=== PATIENT | female | born 1995 | race Caucasian/White ===

== ENCOUNTER 2022-06-27 05:36 | Inpatient (IN) | payer MEDICAID, SELFPAY ==
[2022-06-27] VITALS (68 sets, daily range): BP systolic 122–203; BP diastolic 62–108; PULSE 59–90; RESP 16–20; TEMP 35.9–37.2; O2SAT 92–100; BMI 33.7
[2022-06-27] MEDS: Lactated Ringers 1,000 ML 50 ML IV (05:55)
[2022-06-27 06:10] LABS: Absolute Lymphocyte Count 3.99 X10^3/uL (0.83-4.51); Absolute Neutrophil Count 4.5 X10^3/uL (2.0-7.7); Basophil# 0.03 X10^3/uL; Basophil% 0.3 % (0-1); Eosinophil# 0.09 X10^3/uL; Hematocrit 37.3 % (37-47); Hemoglobin 12.9 g/dL (12.0-15.0); Lymphocyte # 3.99 X10^3/ul (0.83-4.51); Lymphocyte % 42.5 % (19-41); Mean Corp Hgb Conc 34.6 g/dL (32-36); Mean Corpuscular Hgb 32.3 pg (27.0-32.0); Mean Corpuscular Volume 93.5 fL (81-99); Mean Platelet Vol. 12.4 fl (6.2-12.0); Monocyte# 0.68 X10^3/uL; Monocyte% 7.2 % (0-10); NRBC Flagged by Analyzer 0 % (0-5); Neutrophil # 4.49 X10^3/uL (2.7-7.7); Neutrophil % 47.9 % (47-70); Platelet Count 169 K/mm3 (150-450); RBC Distribution Width CV 13.3 % (11.6-14.6); RBC Distribution Width SD 45.5 fl (35.1-43.9); Red Blood Count 3.99 M/mm3 (4.2-5.4); White Blood Count 9.4 K/mm3 (4.4-11.0)
[2022-06-27] MEDS: Oxytocin 10 UNITS/ML Vial IM (06:42)
--- NOTE | 2022-06-27 06:54 | HP.PCM.OB_ITS ---
HPI - General General Date of Admission: 06/27/22 Date of Service: 06/27/22 HPI Narrative ODALYS MISHRA, is a 27 F who presents with contractions. Maternal Data Information Final GIL: 07/04/22 Gestational age: 39 weeks [facility] Medical History (Updated 06/27/22 @ 06:[address] Rosalinda Styles MD) Endometriosis Allergy/AdvReac Type Severity Reaction Status Date / Time Sulfa (Sulfonamide Allergy Other Verified 06/27/22 06:12 Antibiotics) Surgical History (Updated 06/27/22 @ 06:[address] Rosalinda Styles MD) H/O breast surgery H/O ovarian cystectomy Social History Smoking Status: Never smoker History Elective abortions Hx Para 1 Spontaneous abortions Hx # Term Pregnancies Ectopic pregnancies Hx # Pregnancies Multiple births # of living children Vital Signs Vital Signs Vital Signs: 06/27/22 05:52 06/27/22 05:52 06/27/22 05:52 Temperature Temperature Source Temporal Pulse Rate 80 Blood Pressure 140/91 H BP Systolic 140 BP Diastolic 91 Pulse Ox 06/27/22 05:52 06/27/22 05:52 06/27/22 06:50 Temperature 96.7 F L Temperature Source Pulse Rate Blood Pressure 175/73 H BP Systolic 175 BP Diastolic 73 Pulse Ox 100 06/27/22 06:50 06/27/22 06:52 06/27/22 06:52 Temperature Temperature Source Pulse Rate 84 75 Blood Pressure 174/83 H BP Systolic 174 BP Diastolic 83 Pulse Ox Weight Weight: 190 lb 3.2 oz Body Mass Index (BMI) 33.7 Physical Exam Const alert and oriented x3 external exam normal Narrative: cvx - C/C/+1, AROM clear fluid Labs Labs Labs: Blood Type A POSITIVE Antibody Screen NEGATIVE Hct 37.3 % (37-47) Hgb 12.9 g/dL (12.0-15.0) See [facility] H&P Assessment & Plan (1) 39 weeks gestation of : COMMENT: @ 39 weeks in labor PLAN: Patient admitted to L&D. AROM performed & patient had a - see delivery note. COVID negative GBS negative BP's elevated around & just after delivery - arm shaking & patient painful. Will monitor & evaluate for preeclampsia if needed.
--- NOTE | 2022-06-27 07:04 | EX.PCM.OBRPT ---
Maternal Data Information Final GIL: 07/04/22 Gestational age: 39 weeks Vaginal Delivery Maternal Presentation Maternal Presentation: Active Labor Operative Information Date of Procedure: 06/27/22 Pre-Operative Diagnosis: Labor Post-Operative Diagnosis: Labor Surgery / Procedure Performed: Spontaneous Vaginal Delivery Type of Anesthesia: None Estimated Blood Loss: 200ml Findings Description of Procedure: Patient prepped & draped when C/C/+2. She pushed well to deliver the head. head gently guided to allow delivery of anterior and posterior shoulders. No excess traction placed on head. Body delivered and 3VC clamped & cut in delayed fashion. Placenta delivered with gentle traction and good uterine tone obtained. Presentation: GRETCHEN Amniotic Membrane Rupture Type: Artificial Amniotic Fluid Description: Clear Placental Delivery Description: Expressed Placenta Disposition: [facility] Specimen(s) Removed: Placenta Cord Vessel Description: 3 Vessels Cord Entanglement: Around neck x 1, loose Nuchal Cord Compression: Without compression A Gender: Male ([place]) (1 minute): 7 (5 minute): 9 Delayed Cord Clamping: Yes Post Vaginal Delivery Medications Given After Delivery: - (IM pitocin) Episiotomy Description: None Laceration: None Complication Complications: None
[2022-06-27] MEDS: 0.9% Saline Lock 10 ML Syringe IV ×4 (07:39→20:07)
[2022-06-27 08:02] LABS: AST(SGOT) 39 U/L (15-37); Alanine Aminotransfer ALT/SGPT 26 U/L (13-56); Creatinine, Serum 0.81 mg/dL (0.55-1.02); EST Glomerular Filtration Rate 90 mL/min (>60); Est Glom Filt Rate - Afr Amer 109 mL/min (>60)
[2022-06-27] MEDS: Acetaminophen 500 MG Tablet 1000 MG PO ×2 (08:35→17:07)
[2022-06-27] MEDS: Labetalol (Prefilled) 20 MG/4 ML IV (09:25)
[2022-06-27] MEDS: Magnesium Sulfate 4gm/100mL 4 GM/100 ML IV.SOLN. IV (09:39)
[2022-06-27] MEDS: Ondansetron 4 MG/2 ML Vial IV ×2 (09:56→20:06)
[2022-06-27] MEDS: Magnesium Sulfate 4gm/100mL 2 GM/50 ML IV.SOLN. IV (10:02)
[2022-06-27] MEDS: Magnesium Sulfate 20 GM/500 ML BAG IV ×2 (10:18→20:11)
[2022-06-27] MEDS: Ibuprofen 600 MG Tablet PO ×2 (11:12→18:08)
[2022-06-27] MEDS: Labetalol 200 MG Tablet PO ×2 (11:12→22:18)
[2022-06-28] VITALS (31 sets, daily range): BP systolic 120–161; BP diastolic 67–93; PULSE 65–91; RESP 16–18; TEMP 36.3–37.1; O2SAT 96–99
[2022-06-28] MEDS: Ibuprofen 600 MG Tablet PO ×4 (00:14→20:57)
[2022-06-28] MEDS: Acetaminophen 500 MG Tablet 1000 MG PO ×3 (00:14→14:11)
--- NOTE | 2022-06-28 02:00 | NURSING ---
Pt reported SEGURA of 6-04/01 around 0015. Pt given Tylenol and Motrin, but pt reported that did not help. At 0100 pt began drinking CocaCola (within PO fluid restriction) to see if caffeine would help with SEGURA. Pt reports that SEGURA is still persistent, and describes the SEGURA as pressure behind her eyes. Pt's assessment WNL, and pt denies any additional sx at this time. Pt reports that she has not been able to sleep much at all since delivery. Dr. Espinoza updated on pt's condition. Orders for PRN Oxycodone given. Will update pt about new orders and admin meds. RONIT Calabrese
[2022-06-28] MEDS: Ondansetron 4 MG/2 ML Vial IV (02:58)
[2022-06-28] MEDS: 0.9% Saline Lock 10 ML Syringe IV ×3 (02:58→20:57)
[2022-06-28] MEDS: oxyCODONE 5 MG Tablet PO (03:05)
[2022-06-28] MEDS: Magnesium Sulfate 20 GM/500 ML BAG IV (05:55)
--- NOTE | 2022-06-28 08:15 | PCM.PN.OB ---
Subjective Subjective pt doing well. Has a SEGURA since overnight that she describes as pressure behind her eyes. No vision changes other than she feels it is difficult to assess given the eye pressure. No upper abd pain, N/V, CP, SOB. Lochia normal. Bottle feeding. Ambulating and voiding without difficulty. Objective Data Objective Data Vital Signs: Vital Signs Temp Pulse Resp BP Pulse Ox O2 Del Method 98.4 F 91 17 151/89 H 97 Room Air 06/28/22 07:52 06/28/22 07:52 06/28/22 07:52 06/28/22 07:52 06/28/22 07:52 06/28/22 07:52 Oxygen Delivery Method Room Air Weight: 190 lb 3.2 oz Body Mass Index (BMI) 33.7 Intake & Output: Intake and Output for Last 24 Hours 06/26/22 06/27/22 06/28/22 23:59 23:59 23:59 Intake Total 2581.67 / 2581.67 1686.67 / 1686.67 Output Total 3650 / 4250 2100 / 2100 Balance -1068.33 / -1668.33 -413.33 / -413.33 Lab / Micro Data Result Diagrams: 06/27/22 05:55 06/27/22 07:39 Micro: Microbiology 06/27/22 06:05 Nasal Secretion SARS-CoV-2 Antigen (Rapid) - Final Physical Exam Const alert and no apparent distress General Appearance: comfortable HEENT normocephalic Resp normal respiratory effort GI soft to palpation, non-tender and non-distended GI Narrative: FF@U-1 Extremity Extremity Narrative: 1+ pitting edema bilaterally Assessment & Plan (1) Vaginal delivery: PLAN: Routine care Bottle feeding (2) Pre-eclampsia, : PLAN: Mag gtt x 24 hours . Suspect SEGURA due to lack of sleep and mag. Will reassess once mag gtt is off. If she still has a SEGURA will treat with Fioricet. Increase Labetalol to 300 mg BID. Continue close monitoring. Discussed earliest discharge would be tomorrow once she is 24 hours off mag.
[2022-06-28] MEDS: Labetalol 200 MG Tablet 300 MG PO ×2 (09:51→22:17)
--- NOTE | 2022-06-28 15:47 | NURSING ---
this RN agrees with student nurse charting
[2022-06-29] VITALS (7 sets, daily range): BP systolic 145–171; BP diastolic 76–90; PULSE 65–80; RESP 16–18; TEMP 36.4–36.9; O2SAT 97–99
[2022-06-29] MEDS: Acetaminophen 500 MG Tablet 1000 MG PO ×4 (02:58→22:11)
[2022-06-29] MEDS: Ibuprofen 600 MG Tablet PO ×4 (02:59→22:10)
--- NOTE | 2022-06-29 07:55 | PCM.PROGNOTE ---
Subjective Subjective patient seen at bedside, doing well. Patient reports good pain control. lochia mild. reports no changes in vision. reports does still have SEGURA when motrin and tylenol wear off but improving. Objective Data Objective Data Vital Signs: Vital Signs Temp Pulse Resp BP Pulse Ox O2 Del Method 98.5 F 80 18 147/90 H 97 Room Air 06/29/22 02:55 06/29/22 02:55 06/29/22 02:55 06/29/22 02:55 06/29/22 02:55 06/29/22 02:55 Oxygen Delivery Method Room Air Weight: 86.273 kg Body Mass Index (BMI) 33.7 Intake & Output: Intake and Output for Last 24 Hours 06/27/22 06/28/22 06/29/22 23:59 23:59 23:59 Intake Total 2581.67 / 2581.67 2178.34 / 2178.34 Output Total 3650 / 4250 2900 / 2900 Balance -1068.33 / -1668.33 -721.66 / -721.66 Lab / Micro Data Result Diagrams: 06/27/22 05:55 06/27/22 07:39 Micro: Microbiology 06/27/22 06:05 Nasal Secretion SARS-CoV-2 Antigen (Rapid) - Final Physical Exam Narrative funud firm. No RUQ pain on deep palpation. Const alert and oriented x3 General Appearance: cooperative HEENT normocephalic Neck General: normal visual inspection GI soft to palpation and non-distended GI Narrative: Fundus firm Extremity normal to inspection and no calf tenderness Skin no rashes or lesions noted Neuro oriented x3 and CN's II-XII intact bilaterally Psych mental status grossly normal Assessment & Plan Assessment/Plan (1) Pre-eclampsia, : (2) Vaginal delivery: PLAN: Plan PPD#2 , Doing well Routine care pain mgmt ambulation VS- BP still elevated. recommendation for Labetalol TID . reviewed with patient will be discharged tomorrow so long as BPs respond well to labetalol.
[2022-06-29] MEDS: Labetalol 200 MG Tablet 300 MG PO ×3 (07:58→22:10)
--- NOTE | 2022-06-29 18:55 | NURSING ---
Phone call placed to Dr. Del Rio. Updated on elevated BP's. Plan is to start 30 mg Procardia XL daily with first dose now.
[2022-06-29] MEDS: NIFEdipine 30 MG Tablet PO (19:02)
[2022-06-29] MEDS: 0.9% Saline Lock 10 ML Syringe IV (22:12)
--- NOTE | 2022-06-29 23:13 | NURSING ---
Pt complained of itchy and slightly red rash on face, neck, and upper chest. Pt believes it is caused from soap provided by hospital due to the rash occurring after she showered. Will continue to monitor.
[2022-06-30 01:30] VITALS: BP 147/69; PULSE 73; RESP 16; TEMP 36.4; O2SAT 97
[2022-06-30] MEDS: Ibuprofen 600 MG Tablet PO ×2 (04:10→10:37)
[2022-06-30] MEDS: Acetaminophen 500 MG Tablet 1000 MG PO ×2 (04:11→10:37)
[2022-06-30] MEDS: Labetalol 200 MG Tablet 300 MG PO (06:10)
[2022-06-30 08:45] VITALS: BP 141/77; PULSE 84; RESP 18; TEMP 36.3; O2SAT 98
--- NOTE | 2022-06-30 10:05 | PCM.PN.OB ---
Subjective Subjective Doing well per patient and nursing staff. Ambulating and taking PO without difficulty. Voiding and passing flatus. Pain controlled. , services for assistance. Denies headache, visual changes, chest pain, shortness of breath, leg pain or increased bleeding. Lochia normal. Emotional and wanting to go home to see her son. Objective Data Objective Data Vital Signs: Vital Signs Temp Pulse Resp BP Pulse Ox O2 Del Method 97.4 F L 84 18 141/77 H 98 Room Air 06/30/22 08:45 06/30/22 08:45 06/30/22 08:45 06/30/22 08:45 06/30/22 08:45 06/30/22 08:45 Oxygen Delivery Method Room Air Weight: 190 lb 3.2 oz Body Mass Index (BMI) 33.7 Intake & Output: Intake and Output for Last 24 Hours 06/28/22 06/29/22 06/30/22 23:59 23:59 23:59 Intake Total 2178.34 / 2178.34 Output Total 2900 / 2900 0 / 0 Balance -721.66 / -721.66 0 / 0 Lab / Micro Data Result Diagrams: 06/27/22 05:55 06/27/22 07:39 Micro: Microbiology 06/27/22 06:05 Nasal Secretion SARS-CoV-2 Antigen (Rapid) - Final ROS Constitutional Constitutional: Reports systems reviewed and no addt'l complaints, except as documented; Denies headache(s) Eyes Eyes: Denies acute decrease in peripheral vision, blurry vision or change in vision ENT HEENT: Reports systems reviewed and no addt'l complaints, except as documented Cardiovascular Cardiovascular: Denies chest pain or dizziness Respiratory/Chest Respiratory/Chest: Denies cough, dyspnea, dyspnea on exertion, shortness of breath at rest or shortness of breath with exertion Gastrointestinal Gastrointestinal: Denies abdominal pain, diarrhea, nausea or vomiting Genitourinary Genitourinary: Denies abdominal discomfort Musculoskeletal Musculoskeletal: Denies limited range of motion Integumentary Integumentary: Reports systems reviewed and no addt'l complaints, except as documented Neurologic Neurologic: Reports systems reviewed and no addt'l complaints, except as documented Psychiatric Psychiatric: Reports systems reviewed and no addt'l complaints, except as documented Endocrine Endocrinology: Reports systems reviewed and no addt'l complaints, except as documented Hematologic/Lymphatic Hematologic/Lymphatic: Reports systems reviewed and no addt'l complaints, except as documented Allergic/Immunologic Allergic/Immunologic: Reports systems reviewed and no addt'l complaints, except as documented Physical Exam Const alert and oriented x3 General Appearance: cooperative Orientation / Consciousness: awake, oriented to person, oriented to place and oriented to time Exam Limitations: no limitations HEENT normocephalic Head and Scalp: normal to inspection, normocephalic and atraumatic Face and Sinus: normal facial exam Eyes General Eye: normal appearance of both eyes Neck full ROM Chest Chest: symmetrical chest wall rise Resp normal respiratory effort and normal air movement Auscultation: clear to auscultation bilaterally Cardio regular rate, regular rhythm, S1 normal heart sound, S2 normal heart sound, no murmurs, no rub, no gallops and no clicks GI normal to inspection, nondistended, normoactive bowel sounds and non-tender Bladder / Kidney Exam: no CVA tenderness Back/Spine normal ROM Extremity normal to inspection and full ROM Skin no rashes or lesions noted Neuro oriented x3, CN's II-XII intact bilaterally and moves all extremities Sensorium / Orientation: awake, alert and oriented to person Motor Exam: clonus absent Deep Tendon Reflexes: Rt Patellar (L4): 2+ and Lt Patellar (L4): 2+ Assessment & Plan (1) Pre-eclampsia, : PLAN: 1) Routine PP care 2) BP mildly elevated 140/70's, asymptomatic. Discharge with Labetalol 300mg PO TID and Procardia XL 30mg PO once daily. 3) Check BP before taking BP medication. Will call with BP log tomorrow and if elevated 150/90. No Caffiene 4) Motrin for pain 5) Follow up for BP check 3 days 6) Follow up in 2 weeks and 6 weeks for PP visit 7) D/C home and notified of plan of care
--- NOTE | 2022-06-30 10:13 | DS.PCM_ITS ---
Providers Date of Admission: 06/27/22 Primary Care Physician: JAMES Silva Reason For Visit: LABOR AND DELIVERY/VAGINAL DELIVERY Diagnosis Discharge Diagnosis (1) Pre-eclampsia, : Status: Acute Code(s): O14.95 - Unspecified pre-eclampsia, complicating the puerperium Plan: 1) Routine PP care 2) BP mildly elevated 140/70's, asymptomatic. Discharge with Labetalol 300mg PO TID and Procardia XL 30mg PO once daily. 3) Check BP before taking BP medication. Will call with BP log tomorrow and if elevated 150/90. No Caffiene 4) Motrin for pain 5) Follow up for BP check 3 days 6) Follow up in 2 weeks and 6 weeks for PP visit 7) D/C home and notified of plan of care Medications at Discharge Home Medications [id number] 1 mg tablet 1 tab PO DAILY 06/27/22 acetaminophen 500 mg tablet 1,000 mg PO Q6H PRN PRN Pain 1-10 Or Fever #0 tabs 06/30/22 benzocaine 20 %-menthol 0.5 % topical aerosol (Dermoplast (with menthol)) 1 spray topical TID PRN PRN perineal discomfort #0 grams 06/30/22 ibuprofen 600 mg tablet 600 mg PO Q6H PRN PRN Pain Score 1-3 #30 tabs 06/30/22 labetalol 200 mg tablet 300 mg PO TID #60 tabs 06/30/22 nifedipine 30 mg tablet,extended release 24 hr 30 mg PO DAILY #30 tabs 06/30/22 sennosides 8.6 mg-docusate sodium 50 mg tablet (Stool Softener-Stimulant Laxative) 1 - 2 tab PO DAILY PRN PRN Constipation #0 tabs 06/30/22 Hospital Course Summary of Care Provided Hospital Course: Presented on 06/27/22 for precipitous labor and delivery. complicated by preeclampsia with severe features. Antihypertensive therapy and magnesium for management. Discharged home on PP day #3. Weight / BMI Weight Weight: 190 lb 3.2 oz Body Mass Index (BMI) 33.7 ABG / Lab / Microbiology Data Result Diagrams: 06/27/22 05:55 06/27/22 07:39 Microbiology: Microbiology 06/27/22 06:05 Nasal Secretion SARS-CoV-2 Antigen (Rapid) - Final Meaningful Use Info Meaningful Use Diagnoses (Choose all that apply): None applicable Discharge Plan Admission Admit Date/Time: 06/27/22 05:36 Primary Reason for Your Visit: Vaginal , Preeclampsia Attending Provider: Rosalinda Styles Primary Care Provider: Jane Peterson NP Instructions Additional Instructions / Restrictions: May take Claritin for rash to body. If no improvement recommend evaluation. Can apply hydrocortisone as needed. Do not have any caffeine Take Blood pressure before taking medication. Hold if BP is 100/60, then repeat in one hour and call for instructions. Call if BP 150/90 or greater. Discharge Orders/Prescriptions Prescriptions: New Dermoplast (with menthol) 20-0.5 % Aerosol 1 spray topical TID PRN PRN (Reason: perineal discomfort) Qty: 0 0RF Protocol: *Topical Application Instructions APPLICATION INSTRUCTIONS: 1 spray 3 times a day as needed for perineal discomfort acetaminophen 500 mg Tablet 1,000 mg PO Q6H PRN PRN (Reason: Pain 1-10 Or Fever) Qty: 0 0RF ibuprofen 600 mg Tablet 600 mg PO Q6H PRN PRN (Reason: Pain Score 1-3) Qty: 30 0RF labetalol 200 mg Tablet 300 mg PO TID Qty: 60 0RF nifedipine 30 mg Tablet Extended Release 24hr 30 mg PO DAILY Qty: 30 0RF sennosides-docusate sodium [Stool Softener-Stimulant Laxat] 8.6-50 mg Tablet 1 - 2 tab PO DAILY PRN PRN (Reason: Constipation ) Qty: 0 0RF Continued [id number] 1 mg Tablet 1 tab PO DAILY Referrals / Follow Up: Tamara Hannah CNM [Med Staff - Adv Practice Prof] - (Follow up in 3 days for BP check, 2 weeks for virtual visit and 6 weeks for visit) Jane Peterson NP, [employer]ERGY TRADING [employer]NALYST-[employer] [Primary Care Provider] - Disposition Disposition (needs filled in before D/C Order can be placed): Home, Self Care
[2022-06-30] MEDS: NIFEdipine 30 MG Tablet PO (10:37)
== END 2022-06-30 11:20 | disposition home or self-care (01) | DRG 560 ==
LOC: WPOUT 05:51 → WP 05:52
PROVIDERS: Admitting Provider Obstetrics & Gynecology; Visit Provider Obstetrics & Gynecology
DX: O62.3 Precipitate labor (principal); Z37.0 Single live birth; O14.15 Severe pre-eclampsia, complicating the puerperium; Z3A.39 39 weeks gestation of pregnancy
CPT/HCPCS: 59025; 59050; 82565; 84450; 84460; 84550; 85025; 86850; 86900; 86901; 87426; 99218; J7120; A4216; G0378; J2405